=== PATIENT | male | born 1965 | race American Indian/Alaskan Native ===

== ENCOUNTER 2021-11-05 18:24 | Emergency (ER) | payer OTHER ==
[2021-11-05 18:44] VITALS: BP 172/112
--- NOTE | 2021-11-05 20:07 | Emergency Department Report ---
ED Headache HPI - General Chief Complaint: High BP Stated Complaint: HTN CRISIS Time Seen by Provider: 11/05/21 19:49 Source: patient, family Exam Limitations: no limitations - History of Present Illness Initial Comments: Chief complaint: High blood pressure headache HPI: This is a 55-year-old male with history of hypertension and migraine headaches who presents with headache after awakening from nap. He had typical bitemporal pounding moderate headache. He denies vomiting. he denies photophobia he denies fever. Gradual onset upon awakening from a nap. He came to the hospital for elevated blood pressure 222/122 once he called EMS. Headache has resolved. He has headaches twice a month. He has had multiple CT scans and MRI studies of the brain. He has had migraine headaches since his 20s. He recently moved from [facility] to the [facility]. He has had difficulty finding a PCP who is help insurance. He is currently symptom-free. He normally takes hydrochlorothiazide and lisinopril. He takes clonidine at night as needed for elevated blood pressure. Timing/Duration: 1-3 hours Quality: moderate Head Injury Location: temporal (Bitemporal) Recent Head Trauma: frequent headaches Modifying Factors: improves with: other (None) Associated Symptoms: denies symptoms Allergies/Adverse Reactions: Allergies No Known Allergies Allergy (Unverified 11/05/21 18:36) Home Medications: Ambulatory Orders hydroCHLOROthiazide [HCTZ] 25 mg PO QDAY 90 Days #90 tablet 11/05/21 lisinopriL [Zestril TAB] 40 mg PO QDAY 90 Days #90 11/05/21 ED Review of Systems ROS: Stated complaint: HTN CRISIS Other details as noted in HPI Comment: All other systems reviewed and negative Constitutional: denies: chills, fever, malaise Respiratory: denies: cough, shortness of breath Cardiovascular: denies: chest pain Gastrointestinal: denies: abdominal pain, nausea, vomiting Neurological: headache. denies: numbness, paresthesias, confusion, abnormal gait ED Past Medical Hx - Past Medical History Previous Medical History?: Yes Hx Hypertension: Yes Hx Headaches / Migraines: Yes - Surgical History Past Surgical History?: Yes Additional Surgical History: Hand surgery - Family History Family history: hypertension - Social History Smoking Status: Current Every Day Smoker Substance Use Type: Alcohol - Medications Home Medications: Home Medications Medication Instructions Recorded Confirmed Last Taken Type hydroCHLOROthiazide [HCTZ] 25 mg PO QDAY 90 Days #90 tablet 11/05/21 Unknown Rx lisinopriL [Zestril TAB] 40 mg PO QDAY 90 Days #90 11/05/21 Unknown Rx ED Physical Exam - General Limitations: No Limitations General appearance: alert, in no apparent distress, other (Pleasant, jovial, well-appearing) - Head Head exam: Present: atraumatic, normocephalic - Eye Eye exam: Present: normal appearance - ENT ENT exam: Present: mucous membranes moist - Neck Neck exam: Present: normal inspection, full ROM - Respiratory Respiratory exam: Present: normal lung sounds bilaterally. Absent: respiratory distress, wheezes, rales, rhonchi - Cardiovascular Cardiovascular Exam: Present: regular rate, normal rhythm, normal heart sounds. Absent: systolic murmur, diastolic murmur, rubs, gallop - GI/Abdominal GI/Abdominal exam: Present: soft, normal bowel sounds. Absent: distended, tenderness, guarding, rebound - Rectal Rectal exam: Present: deferred - Extremities Exam Extremities exam: Present: normal inspection - Back Exam Back exam: Present: normal inspection - Neurological Exam Neurological exam: Present: alert, oriented X3, normal gait, other (No focal deficits) - Psychiatric Psychiatric exam: Present: normal affect, normal mood - Skin Skin exam: Present: warm, dry, intact, normal color. Absent: rash ED Course Vital Signs 11/05/21 18:30 Temperature 98.1 F Pulse Rate 91 H Respiratory 18 Rate Blood Pressure 172/112 [Right] O2 Sat by Pulse 98 Oximetry ED Medical Decision Making - Medical Decision Making 1. Recurrent migraine headache: Typical for patient without red flags such as neurological deficit, fever, sudden onset, increase severity. 2. Hypertensive urgency due to lack of access to medical care. He has had difficulty finding PCP who will accept [email or web address] insurance. I have provided 90- day prescription of lisinopril and hydrochlorothiazide. I have referred him to 2 different internal medicine physicians. Critical care attestation.: If time is entered above; I have spent that time in minutes in the direct care of this critically ill patient, excluding procedure time. ED Disposition Clinical Impression: Migraine headache, Hypertensive urgency Disposition: HOME / SELF CARE / HOMELESS Is pt being admited?: No Does the pt Need Aspirin: No Condition: Stable Instructions: Recurrent Migraine Headache, [id number], Managing Your Hypertension Prescriptions: hydroCHLOROthiazide [HCTZ] 25 mg PO QDAY 90 Days #90 tablet lisinopriL [Zestril TAB] 40 mg PO QDAY 90 Days #90 Referrals: MARILYN BOSCH MD [Staff Physician] - 3-5 Days CHAITANYA CARRILLO MD [Staff Physician] - 3-5 Days
--- NOTE | 2021-11-06 09:17 | Electrocardiograph Report ---
[facility] Test Date: 2021-11-05 Test Time: 18:28:32 Pat Name: DAIJA ROJO Department: Room: Gender: M Phone Screener: ROSARIO : 1965 Requested By: NAM JENKINS Order Number: [id number] Reading MD: Jazmyn Aldana Measurements Intervals [place] Rate: 80 P: 40 VA: 143 QRS: -13 QRSD: 91 T: -3 QT: 389 QTc: 450 Interpretive Statements Sinus rhythm Low voltage, precordial leads No previous ECG available for comparison Electronically Signed On 11-06-2021 9:17:35 EDT by Jazmyn Aldana
== END 2021-11-05 20:46 | disposition home or self-care (01) ==
LOC: ED 18:24
DX: G43.909 Migraine, unspecified, not intractable, without status migrainosus (principal); I16.0 Hypertensive urgency; Z98.890 Other specified postprocedural states; F17.200 Nicotine dependence, unspecified, uncomplicated
CPT/HCPCS: 93005; 99283